=== PATIENT | female | born 1955 | race Caucasian/White ===

== ENCOUNTER 2016-11-29 | Outpatient (CLI) | payer OTHER | END 2016-11-29 15:17 | disposition critical access hospital (66) | CPT/HCPCS: A0425; A0427 ==

== ENCOUNTER 2016-11-29 15:55 | Observation (INO) | payer OTHER ==
[2016-11-29] MEDS ORDERED: ASPIRIN CHEW 81 MG TABLET PO STA (17:00)
[2016-11-29] MEDS ORDERED: NITROGLYCERIN SL 0.4 MG TABLET SL STA (17:00)
[2016-11-29] MEDS ORDERED: ASPIRIN CHEW 81 MG TABLET ONE (17:09)
[2016-11-29] MEDS ORDERED: NITROGLYCERIN SL 0.4 MG TABLET SL ONE (17:09)
[2016-11-29] MEDS ORDERED: SODIUM CHLORIDE FLUSH 0.9% 10 ML SYRINGE IVP PRN (19:06)
[2016-11-29] MEDS ORDERED: TEMAZEPAM 15 MG CAPSULE PO PRN (19:06)
[2016-11-29] MEDS ORDERED: ACETAMINOPHEN 325 MG TABLET PO PRN (19:06)
[2016-11-29] MEDS ORDERED: ONDANSETRON 4 MG/2 ML VIAL IVP PRN (19:06)
[2016-11-29] MEDS: CALCIUM CARBONATE CHEW 500 MG TABLET PO PRN (21:35)
[2016-11-29] MEDS: SODIUM CHLORIDE FLUSH 0.9% 10 ML SYRINGE IVP SCH (22:20)
[2016-11-29] MEDS ORDERED: NITROGLYCERIN SL 0.4 MG TABLET SL PRN (23:48)
[2016-11-29] MEDS ORDERED: MORPHINE 2 MG/ML SYRINGE IVP PRN (23:48)
[2016-11-30] MEDS ORDERED: oxyCOD/ACETAMIN 5 MG/325 MG TABLET PO PRN (00:12)
[2016-11-30] MEDS ORDERED: LEVOTHYROXINE 88 MCG TABLET PO SCH (02:00)
[2016-11-30] MEDS: MAG HYDROX/AL HYDROX/SIMETH 30 ML UDC PO PRN ×2 (02:01→06:04)
[2016-11-30] MEDS: CALCIUM CARBONATE CHEW 500 MG TABLET PO PRN (05:19)
[2016-11-30] MEDS: SODIUM CHLORIDE FLUSH 0.9% 10 ML SYRINGE IVP SCH (06:02)
[2016-11-30] MEDS ORDERED: PANTOPRAZOLE 40 MG TABLET PO SCH (07:00)
[2016-11-30] MEDS ORDERED: amLODIPine 5 MG TABLET PO SCH (09:00)
[2016-11-30] MEDS ORDERED: ASPIRIN EC 81 MG TABLET PO SCH (09:00)
[2016-11-30] MEDS ORDERED: POLYETHYLENE GLYCOL 3350 17 GM PACKET PO SCH (09:00)
[2016-11-30] MEDS ORDERED: ASPIRIN 325 MG TABLET PO SCH (09:00)
[2016-11-30] MEDS ORDERED: hydroCHLOROthiazide 12.5 MG CAPSULE PO SCH (09:00)
[2016-11-30] MEDS ORDERED: ENOXAPARIN 40 MG/0.4 ML SYRINGE SUBQ SCH (09:00)
== END 2016-11-30 12:40 | disposition home or self-care (01) ==
DX: M48.02 Spinal stenosis, cervical region (principal); E78.5 Hyperlipidemia, unspecified; I10 Essential (primary) hypertension; E03.9 Hypothyroidism, unspecified; K21.9 Gastro-esophageal reflux disease without esophagitis; F17.210 Nicotine dependence, cigarettes, uncomplicated; Z82.49 Family history of ischemic heart disease and other diseases of the circulatory system; Z63.4 Disappearance and death of family member; Z71.6 Tobacco abuse counseling; Z79.82 Long term (current) use of aspirin
CPT/HCPCS: 36415; 70450; 71020; 72125; 80048; 80053; 80061; 82550; 82553; 83036; 83690; 83735; 84484; 85025; 85651; 93005; 93010; 93306; 99217; 99218; 99284; A9270

== ENCOUNTER 2016-12-20 14:49 | Outpatient (CLI) | payer OTHER | END 2016-12-20 14:50 | disposition home or self-care (01) | DX: M50.322 Other cervical disc degeneration at C5-C6 level (principal); M47.812 Spondylosis without myelopathy or radiculopathy, cervical region ==

== ENCOUNTER 2018-02-18 17:41 | Emergency (ER) | payer OTHER ==
--- NOTE | 2018-02-18 17:50 | ED Physician Documentation ---
History of Present Illness - Stated complaint Stated Complaint: FLU SYMPTOMS - Chief complaint Chief Complaint: General - History obtained from History obtained from: Patient - History of Present Illness Timing: How many days ago (4) Pain level max: 4 Pain level now: 4 Improved by: nothing Worsened by: breathing, coughing - Additonal information Additional information: cough, congestion, body aches x 3 days. Review of Systems Ten Systems: 10 systems reviewed and negative Constitutional: reports: Fever Ears: denies: Ear pain Nose: reports: Rhinorrhea / runny nose, Congestion Respiratory: reports: Cough GI: denies: Abdominal Pain, Nausea, Vomiting, Diarrhea Skin: denies: Rash Musculoskeletal: denies: Neck pain, Back pain Neurologic: denies: Headache PD PAST MEDICAL HISTORY - Past Medical History Cardiovascular: Hypertension Respiratory: Pneumonia Neuro: Other Endocrine/Autoimmune: HyPOthyroidism GI: GERD : None HEENT: Chronic vision loss, Other Psych: None Musculoskeletal: None Derm: None - Past Surgical History Past Surgical History: Yes 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 HEENT: Other - Present Medications Home Medications: Ambulatory Orders Medication Instructions Recorded Confirmed Aspirin 81 mg PO DAILY 04/18/14 06/04/15 Levothyroxine [Synthroid] 88 mcg PO DAILY 04/18/14 06/04/15 Azithromycin [Zithromax] 250 mg PO DAILY #4 tablet 02/18/18 Benzonatate [Tessalon Perle] 100 - 200 mg PO TID PRN #30 capsule 02/18/18 - Allergies Allergies/Adverse Reactions: Allergies Allergy/AdvReac Type Severity Reaction Status Date / Time lisinopril Allergy Intermediate Rash Verified 02/18/18 17:49 - Social History Does the pt smoke?: Yes Smoking Status: Current every day smoker Does the pt drink ETOH?: No Does the pt have substance abuse?: No - Immunizations Immunizations: TDAP >10years/unknown PD ED PE NORMAL - Vitals Vital signs reviewed: Yes - General General: Alert and oriented X 3, No acute distress - HEENT HEENT: Ears normal, Moist mucous membranes, Pharynx benign - Neck Neck: Supple, no meningeal sign - Cardiac Cardiac: RRR - Respiratory Respiratory: No respiratory distress, Other (rhonchi B) - Abdomen Abdomen: Soft, Non tender, Non distended - Back Back: No CVA TTP, No spinal TTP - Derm Derm: Warm and dry, No rash - Extremities Extremities: No edema - Neuro Neuro: Alert and oriented X 3 - Psych Psych: Normal mood, Normal affect Results - Vitals Vitals: Vital Signs - 24 hr 02/18/18 02/18/18 17:46 19:14 Temperature 37.8 C H 36.5 C Heart Rate 114 H 114 H Respiratory 22 18 Rate Blood Pressure 136/83 H 109/76 O2 Saturation 99 94 Oxygen O2 Source Room air - Labs Labs: Laboratory Tests 02/18/18 17:50 Influenza A (Rapid) Negative Influenza B (Rapid) Negative - Rads (name of study) cxr Radiology: Prelim report reviewed, EMP read contemporaneously, See rad report ( Left upper lobe infiltrate concerning for pneumonia) PD MEDICAL DECISION MAKING - ED course Complexity details: reviewed results, re-evaluated patient, considered differential, d/w patient ED course: Patient is a 62-year-old female who presents to the emergency department with URI symptoms. Appears to have left upper lobe pneumonia on chest x-ray. Will start on antibiotics. Will also place on antitussives. She is well-appearing, nontoxic. No hypoxia or respiratory distress. Patient counseled regarding signs and symptoms for which I believe and urgent re-evaluation would be necessary. Patient with good understanding of and agreement to plan and is comfortable going home at this time This document was made in part using voice recognition software. While efforts are made to proofread this document, sound alike and grammatical errors may occur. Departure - Departure Disposition: 01 Home, Self Care Clinical Impression: Pneumonia Qualifiers: Pneumonia type: due to unspecified organism Laterality: left Lung location: upper lobe of lung Qualified Code(s): J18.1 - Lobar pneumonia, unspecified organism Condition: Good Instructions: ED Pneumonia Adult Follow-Up: Rona Kohli, RUG DRYING MACHINE OPERATOR [Primary Care Provider] - Within 1 week Prescriptions: Azithromycin [Zithromax] 250 mg PO DAILY #4 tablet Benzonatate [Tessalon Perle] 100 - 200 mg PO TID PRN #30 capsule PRN Reason: Cough Comments: Take all antibiotics until gone. Return if you worsen. You can utilize motrin and tylenol at home for fever. Discharge Date/Time: 02/18/18 19:16
[2018-02-18] MEDS ORDERED: ACETAMINOPHEN 325 MG TABLET PO STA (18:03)
[2018-02-18] MEDS ORDERED: BENZONATATE 100 MG CAPSULE PO STA (18:03)
--- NOTE | 2018-02-18 18:42 | XRAY Report ---
EXAM: CHEST RADIOGRAPHY EXAM DATE: 02/18/2018 06:14 PM. CLINICAL HISTORY: Cough, fever. COMPARISON: 11/29/2016. TECHNIQUE: 2 views. FINDINGS: Lungs/Pleura: There is a new focal airspace density in the left upper lobe measuring 4 cm in diameter . Negative for pleural effusion and pneumothorax. Mediastinum: There is moderate calcification of the aortic arch. Heart size is normal. Other: None. IMPRESSION: New left upper lobe airspace disease suspicious for pneumonia. [facility] Referring Provider Line: [phone] SITE ID: [id number]
--- NOTE | 2018-02-18 18:42 | XRAY Preliminary Report ---
Exam: XR CHEST 2 VIEW X-RAY IMPRESSION: New left upper lobe airspace disease suspicious for pneumonia. [facility] SITE ID: [id number]
[2018-02-18] MEDS ORDERED: AZITHROMYCIN 250 MG TABLET PO STA (18:57)
[2018-02-18 19:15] VITALS: BP 109/76
== END 2018-02-18 19:16 | disposition home or self-care (01) ==
LOC: ED 17:41
DX: J18.9 Pneumonia, unspecified organism (principal); I10 Essential (primary) hypertension; E03.9 Hypothyroidism, unspecified; K21.9 Gastro-esophageal reflux disease without esophagitis; Z79.82 Long term (current) use of aspirin; F17.200 Nicotine dependence, unspecified, uncomplicated
CPT/HCPCS: 71046; 87275; 87276; 99283; 99284; A9270

== ENCOUNTER 2018-03-07 15:29 | Outpatient (CLI) | payer OTHER ==
--- NOTE | 2018-03-07 17:50 | XRAY Report ---
TWO VIEW CHEST: 03/07/2018 CLINICAL INDICATION: Followup pneumonia. COMPARISON: 02/18/2018 FINDINGS: Frontal and lateral views of the chest demonstrate a normal cardiac silhouette. The lungs are now clear. Previously seen left upper lobe infiltrate has resolved. No effusion or pneumothorax is present. IMPRESSION: RESOLUTION OF LEFT-SIDED AIRSPACE DISEASE. TD: 03/07/2018 15:52
== END 2018-03-07 15:30 | disposition home or self-care (01) ==
LOC: DI 15:29
PROVIDERS: ATTEND Registered Nurse
DX: J18.9 Pneumonia, unspecified organism (principal)
CPT/HCPCS: 71046

== ENCOUNTER 2018-11-25 03:05 | Emergency (ER) | payer OTHER ==
[2018-11-25] MEDS ORDERED: SODIUM CHLORIDE 0.9% 1,000 ML IV ONE (03:28)
[2018-11-25] MEDS ORDERED: ONDANSETRON 4 MG/2 ML VIAL IVP STA (03:28)
[2018-11-25] MEDS ORDERED: KETOROLAC 30 MG/ML VIAL IVP STA (03:28)
--- NOTE | 2018-11-25 03:40 | ED Physician Documentation ---
History of Present Illness - Stated complaint Stated Complaint: DIZZINESS,SOA - Chief complaint Chief Complaint: Resp - History obtained from History obtained from: Patient, Family - History of Present Illness Timing: How many days ago (2) Pain level max: 8 Pain level now: 8 - Additonal information Additional information: 62-year-old female with a complaint of "I have pneumonia". She states that she had subjective fevers at home. Minimal cough. Has been vomiting for the past 2 days. States has all over body aches. Did receive her flu shot this year. Has not taken anything for the pain. She states she is unable to keep anything down at this time. No diarrhea. Does have cramping abdominal pain. Brought in by family. Nothing makes it better or worse Review of Systems Ten Systems: 10 systems reviewed and negative Constitutional: reports: Fever (Subjective), Chills, Myalgias Eyes: denies: Photophobia Ears: denies: Ear pain Nose: denies: Rhinorrhea / runny nose, Congestion Throat: denies: Sore throat Cardiac: reports: Chest pain / pressure (Left-sided chest pain, constant, worse with coughing. Has been present for 2 days) Respiratory: reports: Cough (Mild). denies: Dyspnea, Hemoptysis, Wheezing GI: reports: Nausea, Vomiting. 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 HEENT: Other - Present Medications Home Medications: Ambulatory Orders Medication Instructions Recorded Confirmed Levothyroxine [Synthroid] 88 mcg PO DAILY 04/18/14 06/04/15 Benzonatate [Tessalon Perle] 100 - 200 mg PO TID PRN #30 capsule 11/25/18 Doxycycline Hyclate 100 mg PO BID #20 capsule 11/25/18 Ibuprofen [Motrin] 800 mg PO Q8H PRN #30 tablet 11/25/18 Ondansetron Odt [Zofran] 4 mg TL Q6H PRN #10 tablet 11/25/18 - Allergies Allergies/Adverse Reactions: Allergies Allergy/AdvReac Type Severity Reaction Status Date / Time lisinopril Allergy Intermediate Rash Verified 11/25/18 03:15 - Social History Does the pt smoke?: Yes Smoking Status: Current every day smoker Does the pt drink ETOH?: No Does the pt have substance abuse?: No - Immunizations Immunizations are current?: Yes Immunizations: TDAP >10years/unknown - POLST Patient has POLST: No PD ED PE NORMAL - Vitals Vital signs reviewed: Yes - General General: Alert and oriented X 3, Well developed/nourished, Other (Curled in the bed, hand on the left chest) - HEENT HEENT: PERRL, Ears normal, Moist mucous membranes, Pharynx benign - Neck Neck: Supple, no meningeal sign - Cardiac Cardiac: RRR, Strong equal pulses - Respiratory Respiratory: No respiratory distress, Clear bilaterally - Abdomen Abdomen: Soft, Non tender, Non distended - Back Back: No spinal TTP - Derm Derm: Warm and dry, No rash - Extremities Extremities: No edema, No calf tenderness / cord - Neuro Neuro: Alert and oriented X 3 - Psych Psych: Normal mood, Normal affect Results - Vitals Vitals: Vital Signs - 24 hr 11/25/18 11/25/18 11/25/18 03:13 03:50 04:12 Temperature 37.3 C 37.7 C H Heart Rate 107 H 90 86 Respiratory 18 22 25 H Rate Blood Pressure 115/60 131/64 H 110/64 O2 Saturation 97 95 94 Oxygen O2 Source Room air - Labs Labs: Laboratory Tests 11/25/18 11/25/18 11/25/18 03:30 03:30 03:49 WBC 18.4 H RBC 4.70 Hgb 14.2 Hct 43.7 MCV 93.0 MCH 30.2 MCHC 32.5 RDW 13.7 Plt Count 192 MPV 8.2 Neut # (Auto) 16.1 H Lymph # (Auto) 1.2 L [place] # (Auto) 1.0 Eos # (Auto) 0.0 Baso # (Auto) 0.1 Absolute Nucleated RBC 0.00 Nucleated RBC % 0.0 Sodium 132 L Potassium 3.1 L Chloride 99 L Carbon Dioxide 22 Anion Gap 11.0 BUN 14 Creatinine 0.8 Estimated GFR (MDRD) 73 L Glucose 117 H Calcium 9.1 Total Bilirubin 1.1 H AST 23 ALT 13 Alkaline Phosphatase 60 Total Protein 7.6 Albumin 3.7 Globulin 3.9 Albumin/Globulin Ratio 0.9 L Lipase 20 L Urine Color Urine Clarity Urine pH Ur Specific [place] Urine Protein Urine Glucose (UA) Urine Ketones Urine Occult Blood Urine Nitrite Urine Bilirubin Urine Urobilinogen Ur Leukocyte Esterase Urine RBC Urine WBC Ur Squamous Epith Cells Urine Bacteria Urine Mucus Ur Microscopic Review Urine Culture Comments Influenza A (Rapid) POSITIVE H Influenza B (Rapid) Negative 11/25/18 03:50 WBC RBC Hgb Hct MCV MCH MCHC RDW Plt Count MPV Neut # (Auto) Lymph # (Auto) [place] # (Auto) Eos # (Auto) Baso # (Auto) Absolute Nucleated RBC Nucleated RBC % Sodium Potassium Chloride Carbon Dioxide Anion Gap BUN Creatinine Estimated GFR (MDRD) Glucose Calcium Total Bilirubin AST ALT Alkaline Phosphatase Total Protein Albumin Globulin Albumin/Globulin Ratio Lipase Urine Color YELLOW Urine Clarity HAZY Urine pH 6.0 Ur Specific [place] 1.020 Urine Protein NEGATIVE Urine Glucose (UA) NEGATIVE Urine Ketones 15 H Urine Occult Blood SMALL H Urine Nitrite NEGATIVE Urine Bilirubin NEGATIVE Urine Urobilinogen 0.2 (NORMAL) Ur Leukocyte Esterase NEGATIVE Urine RBC 0-5 Urine WBC 0-3 Ur Squamous Epith Cells MANY Squamous H Urine Bacteria Rare Urine Mucus Few Strands Ur Microscopic Review INDICATED Urine Culture Comments NOT INDICATED Influenza A (Rapid) Influenza B (Rapid) - Rads (name of study) cxr Radiology: Prelim report reviewed, EMP read contemporaneously, See rad report (Mass or infiltrate at the left apex. Malignancy not excluded. Pneumonia also possible) PD MEDICAL DECISION MAKING - ED course Complexity details: reviewed results, re-evaluated patient, considered differential, d/w patient, d/w family ED course: 62-year-old female with what appears to be influenza A as well as pneumonia. Given Toradol, Tylenol, Rocephin and azithromycin. Also given IV fluids. Given Zofran and is tolerating p.o. without difficulty. Feels much better. She does not appear septic at this time. No hypoxia or respiratory distress. Counseled that she needs a follow-up chest x-ray to ensure resolution of her pneumonia that there is not a mass underlying this. Patient is well-appearing, nontoxic. Patient and family are comfortable going home at this time. Patient and family counseled regarding signs and symptoms for which I believe and urgent re- evaluation would be necessary. Patient with good understanding of and agreement to plan This document was made in part using voice recognition software. While efforts are made to proofread this document, sound alike and grammatical errors may occur. Departure - Departure Disposition: Home, Self Care Clinical Impression: Influenza A Pneumonia Qualifiers: Pneumonia type: due to unspecified organism Laterality: left Lung location: upper lobe of lung Qualified Code(s): J18.1 - Lobar pneumonia, unspecified o rganism Condition: Good Instructions: ED Flu, ED Pneumonia Adult Follow-Up: Rona Kohli ARNP [Primary Care Provider] - Within 1 week () Prescriptions: Benzonatate [Tessalon Perle] 100 - 200 mg PO TID PRN #30 capsule PRN Reason: Cough Doxycycline Hyclate 100 mg PO BID #20 capsule Ibuprofen [Motrin] 800 mg PO Q8H PRN #30 tablet PRN Reason: PAIN &/OR FEVER Ondansetron Odt [Zofran] 4 mg TL Q6H PRN #10 tablet PRN Reason: Nausea / Vomiting Comments: Drink plenty of fluids and rest. Return if you worsen. Take all antibiotics until gone. You should have a repeat xray in 3-4 weeks to ensure resolution and to exclude any masses or other abnormalities that can mimic pneumonia on an xray.
[2018-11-25 03:46] LABS: HGB - HEMOGLOBIN 14.2 g/dL (12.0-16.0); NEUTROPHILS # (AUTO) 16.1 10^3/uL (1.5-6.6); RED CELL DISTRIBUTION WIDTH 13.7 % (12.0-15.0)
[2018-11-25 03:52] LABS: BASOPHILS # (AUTO) 0.1 10^3/uL (0.0-0.1); BASOPHILS % (AUTO) 0.3 %; LYMPHOCYTES # (AUTO) 1.2 10^3/uL (1.5-3.5); LYMPHOCYTES % (AUTO) 6.7 %; MEAN CORPUSCULAR HEMOGLOBIN 30.2 pg (27.0-31.0); MEAN CORPUSCULAR HGB CONC 32.5 g/dL (32.0-36.0); MEAN PLATELET VOLUME 8.2 fL (7.9-10.8); MONOCYTES % (AUTO) 5.6 %; NEUTROPHILS % (AUTO) 87.4 %; PLT - PLATELET COUNT 192 10^3/uL (130-450); WHITE BLOOD COUNT 18.4 x10^3/uL (4.8-10.8)
[2018-11-25 03:55] LABS: GLUCOSE, URINE (UA) NEGATIVE (NEGATIVE); KETONES,URINE (UA) 15 mg/dL (NEGATIVE); LEUKOCYTE ESTERASE, URINE NEGATIVE (NEGATIVE); NITRITE,URINE NEGATIVE (NEGATIVE); OCCULT BLOOD,URINE SMALL (NEGATIVE); PROTEIN,URINE NEGATIVE (NEGATIVE); UROBILINOGEN,URINE 0.2 (NORMAL) E.U./dL (NORMAL)
[2018-11-25 03:56] LABS: ALBUMIN 3.7 g/dL (3.2-5.5); ALBUMIN/GLOBULIN RATIO 0.9 (1.0-2.2); BILIRUBIN,TOTAL 1.1 mg/dL (0.2-1.0); CALCIUM 9.1 mg/dL (8.5-10.3); CREATININE 0.8 mg/dL (0.4-1.0); TOTAL PROTEIN 7.6 g/dL (6.7-8.2)
[2018-11-25] MEDS ORDERED: cefTRIAXone 1 GM VIAL IVP STA (04:16)
[2018-11-25] MEDS ORDERED: AZITHROMYCIN 250 MG TABLET PO STA (04:16)
[2018-11-25 04:20] LABS: BACTERIA,URINE Rare /HPF (None Seen); BILIRUBIN,URINE NEGATIVE (NEGATIVE); CLARITY,URINE HAZY (CLEAR); ICTOTEST,URINE NEGATIVE; RBC,URINE 0-5 /HPF (0-5); SQUAMOUS EPITHELIAL CELL,UR MANY Squamous (<= Few)
[2018-11-25 04:21] LABS: MUCUS,URINE Few Strands
--- NOTE | 2018-11-25 04:26 | XRAY Report ---
Reason: cough, chest pain Procedure Date: 11/25/2018 Accession Number: [id number] / [id number] Procedure: XR - Chest 2 View X-Ray CPT Code: 36467 FULL RESULT: EXAM: CHEST RADIOGRAPHY EXAM DATE: 11/25/2018 04:11 AM. CLINICAL HISTORY: Cough, chest pain. Fever and shortness of breath. COMPARISON: CHEST 2 VIEW 03/07/2018 3:34 PM. TECHNIQUE: 2 views. FINDINGS: Lungs/Pleura: Mass or infiltrate at the left apex. No pleural effusion seen. No pneumothorax. Mediastinum: Heart size is normal. Aortic atherosclerosis. Other: None. IMPRESSION: 1. Mass or infiltrate at the left apex. Malignancy not excluded. Pneumonia also possible. [facility]
[2018-11-25] MEDS ORDERED: ACETAMINOPHEN 325 MG TABLET PO STA (04:38)
[2018-11-25 04:45] VITALS: BP 109/65
== END 2018-11-25 04:51 | disposition home or self-care (01) ==
LOC: ED 03:05
DX: J10.00 Influenza due to other identified influenza virus with unspecified type of pneumonia (principal); F17.200 Nicotine dependence, unspecified, uncomplicated; I10 Essential (primary) hypertension
CPT/HCPCS: 36415; 71046; 80053; 81001; 83690; 84484; 85025; 87275; 87276; 93005; 96374; 96375; 99284; A9270; 81003; 87086

== ENCOUNTER 2018-12-26 14:47 | Outpatient (CLI) | payer OTHER ==
--- NOTE | 2018-12-27 05:47 | XRAY Report ---
Reason: PNEUMONIA Procedure Date: 12/26/2018 Accession Number: [id number] / [id number] Procedure: XR - Chest 2 View X-Ray CPT Code: 00554 FULL RESULT: EXAM: CHEST RADIOGRAPHY EXAM DATE: 12/26/2018 02:57 PM. CLINICAL HISTORY: History of pneumonia, 4 week follow-up chest x-ray. COMPARISON: CHEST 2 VIEW 11/25/2018 3:33 AM, CHEST 2 VIEW 03/07/2018 3:34 PM, CHEST 2 VIEW 02/18/2018 6:03 PM, CXR PA TECHNIQUE: 2 views. FINDINGS: Lungs/Pleura: Small irregular consolidation within the left upper lobe. This is improved from the prior study. Mediastinum: Moderate calcific atherosclerosis. Normal heart size. Other: Anterior compression deformity of mid thoracic vertebral body. Multilevel thoracic degenerative change. IMPRESSION: Small left upper lobe irregular opacity, improved from the prior study. This may be improving infectious or inflammatory process. Follow-up chest x-ray would be helpful at 4-6 weeks after appropriate treatment to assess for resolution. [facility]
== END 2018-12-26 14:48 | disposition home or self-care (01) ==
LOC: DI 14:47
PROVIDERS: ATTEND Registered Nurse
DX: J18.9 Pneumonia, unspecified organism (principal)
CPT/HCPCS: 71046

== ENCOUNTER 2019-01-26 08:45 | Outpatient (CLI) | payer OTHER ==
--- NOTE | 2019-01-26 09:35 | XRAY Report ---
Reason: PNEUMONIA Procedure Date: 01/26/2019 Accession Number: [id number] / [id number] Procedure: XR - Chest 2 View X-Ray CPT Code: 22423 FULL RESULT: EXAM: CHEST RADIOGRAPHY EXAM DATE: 01/26/2019 08:49 AM. CLINICAL HISTORY: Pneumonia. COMPARISON: CHEST 2 VIEW 12/26/2018 2:50 PM. CHEST 2 VIEW 11/25/2018 3:33 AM. TECHNIQUE: 2 views. FINDINGS: Lungs/Pleura: No focal opacities evident. Interval resolution of previous left upper lobe infiltrate seen on exam 11/25/2018. No pleural effusion. No pneumothorax. Normal volumes. Mediastinum: Heart and mediastinal contours are unremarkable. Other: None. IMPRESSION: Normal 2-view chest radiography. [facility]
== END 2019-01-26 08:46 | disposition home or self-care (01) ==
LOC: DI 08:45
PROVIDERS: ATTEND Registered Nurse
DX: J18.9 Pneumonia, unspecified organism (principal)
CPT/HCPCS: 71046

== ENCOUNTER 2020-05-05 14:50 | Outpatient (CLI) | payer OTHER ==
--- NOTE | 2020-05-06 15:11 | Mammography Report ---
BILATERAL DIGITAL SCREENING MAMMOGRAM 3D/2D: 05/05/2020 CLINICAL: Routine screening. Comparison is made to exams dated: 08/31/2016 mammogram, 09/26/2014 mammogram, and 03/19/2011 mammogram - [facility]. The tissue of both breasts is predominantly fatty. No significant masses, calcifications, or other findings are seen in either breast. There has been no significant interval change. IMPRESSION: NEGATIVE There is no mammographic evidence of malignancy. A 1 year screening mammogram is recommended. This exam was interpreted at Station ID: [id number]. NOTE: For mammograms, a report in lay terms will be sent to the patient. Approximately 15% of breast malignancies will not be visualized mammographically. In the management of a palpable breast mass, a negative mammogram must not discourage biopsy of a clinically suspicious lesion. Electronically Signed By: Rah Grider M.D., jr/beth:05/05/2020 15:55:28 ACR BI-RADS Category 1: Negative 3341F PARENCHYMAL PATTERN: (F) - The breast(s) demonstrate(s) diffuse fatty replacement. BI-RADS CATEGORY: (1) - 1 RECOMMENDATION: (ANNUAL) - Recommend routine annual screening mammography. [id number] 1 year screening LATERALITY: (B)
== END 2020-05-05 14:51 | disposition home or self-care (01) ==
LOC: DI 14:50
PROVIDERS: ATTEND Registered Nurse
DX: Z12.31 Encounter for screening mammogram for malignant neoplasm of breast (principal)
CPT/HCPCS: 77063; 77067

== ENCOUNTER 2020-11-21 12:34 | Outpatient (CLI) | payer OTHER ==
[2020-11-21 14:48] LABS: BASOPHILS % (AUTO) 0.5 %; EOSINOPHILS # (AUTO) 0.1 10^3/uL (0.0-0.7); EOSINOPHILS % (AUTO) 1.6 %; HGB - HEMOGLOBIN 14.5 g/dL (12.0-16.0); LYMPHOCYTES # (AUTO) 1.4 10^3/uL (1.5-3.5); LYMPHOCYTES % (AUTO) 22.6 %; MEAN CORPUSCULAR HEMOGLOBIN 31.1 pg (27.0-31.0); MEAN CORPUSCULAR HGB CONC 31.9 g/dL (32.0-36.0); MEAN CORPUSCULAR VOLUME 97.6 fL (81.0-99.0); MEAN PLATELET VOLUME 10.1 fL (7.9-10.8); MONOCYTES # (AUTO) 0.4 10^3/uL (0.0-1.0); MONOCYTES % (AUTO) 6.1 %; NEUTROPHILS # (AUTO) 4.3 10^3/uL (1.5-6.6); NEUTROPHILS % (AUTO) 68.9 %; PLT - PLATELET COUNT 242 10^3/uL (130-450); RED BLOOD COUNT 4.66 10^6/uL (4.20-5.40); RED CELL DISTRIBUTION WIDTH 12.7 % (12.0-15.0); WHITE BLOOD COUNT 6.2 x10^3/uL (4.8-10.8)
[2020-11-21 15:50] LABS: MAGNESIUM 2.4 mg/dL (1.7-2.8)
[2020-11-21 15:51] LABS: FOLATE 15.35 ng/mL (5.90 - >24.8)
== END 2020-11-21 12:35 | disposition home or self-care (01) ==
LOC: LAB.S 12:34
PROVIDERS: ATTEND Registered Nurse
DX: L43.9 Lichen planus, unspecified (principal)
CPT/HCPCS: 36415; 82607; 82746; 83540; 83735; 84207; 84466; 84630; 85025

== ENCOUNTER 2020-12-03 15:10 | Outpatient (CLI) | payer OTHER ==
[2020-12-05 10:52] LABS: HOMOCYSTEINE 12.4 umol/L (<10.4)
== END 2020-12-03 15:11 | disposition home or self-care (01) ==
LOC: LAB.S 15:10
PROVIDERS: ATTEND Registered Nurse
DX: E53.8 Deficiency of other specified B group vitamins (principal)
CPT/HCPCS: 36415; 83090; 83921

== ENCOUNTER 2021-05-06 16:28 | Outpatient (CLI) | payer OTHER ==
[2021-05-06 20:28] LABS: % IRON SATURATION 16 % (20-50); IRON 64 ug/dL (28-170); TOTAL IRON BINDING CAPACITY 392 ug/dL (250-450); TRANSFERRIN 280 mg/dL (192-382)
[2021-05-06 20:33] LABS: THYROID STIMULATING HORMONE 3.67 uIU/mL (0.34-5.60)
[2021-05-06 20:34] LABS: FREE T3 2.76 pg/mL (2.5-3.9)
[2021-05-06 20:35] LABS: FREE T4 (FREE THYROXINE) 0.9 ng/dL (0.58-1.64)
[2021-05-06 20:39] LABS: FERRITIN 39.5 ng/mL (11.0-306.8)
== END 2021-05-06 16:29 | disposition home or self-care (01) ==
LOC: LAB.S 16:28
PROVIDERS: ATTEND Registered Nurse
DX: L65.9 Nonscarring hair loss, unspecified (principal); E03.9 Hypothyroidism, unspecified
CPT/HCPCS: 36415; 82728; 83540; 84439; 84443; 84466; 84481; 85651

== ENCOUNTER 2021-08-27 07:40 | Outpatient (CLI) | payer OTHER ==
--- NOTE | 2021-08-27 13:00 | Ultrasound Report ---
PROCEDURE: Carotid Doppler Complete INDICATIONS: CAROTID ATHEROSCLEROSIS TECHNIQUE: Color and pulse Doppler interrogation was performed of both carotid systems, with image documentation and velocity measurements. COMPARISON: 08/28/2016. FINDINGS: Right side: Brachial blood pressure: 162/78 mm Hg. Common carotid artery peak systolic velocity: 68 cm/sec. Internal carotid artery peak systolic velocity: 102 cm/sec. Internal carotid artery end diastolic velocity: 77 cm/sec. External carotid artery peak systolic velocity: 80 cm/sec. ICA/CCA peak systolic ratio: 1.5 . Painting scale imaging description: Calcified plaque Percent internal carotid artery stenosis: Less than 50% . Vertebral artery: Flow direction is antegrade. Left side: Brachial blood pressure: 158/75 mm Hg. Common carotid artery peak systolic velocity: 92 cm/sec. Internal carotid artery peak systolic velocity: 93 cm/sec. Internal carotid artery end diastolic velocity: 28 cm/sec. External carotid artery peak systolic velocity: 108 cm/sec. ICA/CCA peak systolic ratio: 1.01 . Painting scale imaging description: Calcified plaque Percent internal carotid artery stenosis: Less than 50% . Vertebral artery: Flow direction is antegrade. IMPRESSION: 1. Less than 50% stenosis of the origins of the internal carotid arteries bilaterally. Finding not si gnificantly changed compared to prior exam obtained 08/28/2016. 2. Hypertension the time of image acquisition. The estimate of stenosis included in the report of the imaging study was calculated using the NASCET method Reviewed by: Clair Diaz MD, PhD on 08/27/2021 11:58 AM RICHARD Approved by: Clair Diaz MD, PhD on 08/27/2021 11:58 AM RICHARD Station ID: [id number]
== END 2021-08-27 07:41 | disposition home or self-care (01) ==
LOC: DI 07:40
PROVIDERS: ATTEND Registered Nurse
DX: I65.23 Occlusion and stenosis of bilateral carotid arteries (principal); I10 Essential (primary) hypertension
CPT/HCPCS: 93880

== ENCOUNTER 2024-01-30 08:00 | Outpatient (CLI) | payer MEDICARE, OTHER | END 2024-01-30 23:59 | disposition home or self-care (01) | LOC: LAB.N 08:00 | PROVIDERS: ATTEND Registered Nurse | DX: R30.0 Dysuria (principal) | CPT/HCPCS: 87086; 87181 ==

== ENCOUNTER 2024-07-19 12:20 | Outpatient (CLI) | payer MEDICARE ==
--- NOTE | 2024-07-20 08:33 | Mammography Report ---
BILATERAL DIGITAL SCREENING MAMMOGRAM 3D/2D: 07/19/2024 CLINICAL: Routine screening. Comparison is made to exams dated: 06/14/2022 mammogram, 05/05/2020 mammogram, 08/31/2016 mammogram, an d 09/26/2014 mammogram - [facility]. The breasts are almost entirely fatty (category a/<25% glandular tissue). No significant masses, calcifications, or other findings are seen in either breast. There has been no significant interval change. IMPRESSION: NEGATIVE There is no mammographic evidence of malignancy. A 1 year screening mammogram is recommended. Based on the Tyrer Cuzick model (a risk assessment model) the patient's lifetime risk is 4.1% and her 10 year risk is 2.2%. According to the ACR, ACS, and NCCN guidelines, an annual breast MRI exam royce g with mammogram is recommended if the patient's lifetime risk is 20% or greater. This exam was interpreted at Station ID: [id number]. NOTE: For mammograms, a report in lay terms will be sent to the patient. Approximately 15% of breast malignancies will not be visualized mammographically. In the management of a palpable breast mass, a negative mammogram must not discourage biopsy of a clinically suspicious lesion. Electronically Signed By: Domitila Haney M.D., Ph.D. /beth:07/20/2024 07:46:51 letter sent: No_Letter ACR BI-RADS Category 1: Negative PARENCHYMAL PATTERN: (F) - The breast(s) demonstrate(s) diffuse fatty replacement. BI-RADS CATEGORY: (1) - 1 RECOMMENDATION: (ANNUAL) - Recommend routine annual screening mammography. [id number] 1 year screening LATERALITY: (B)
== END 2024-07-19 12:21 | disposition home or self-care (01) ==
LOC: DI 12:20
PROVIDERS: ATTEND Registered Nurse
DX: Z12.31 Encounter for screening mammogram for malignant neoplasm of breast (principal)

== ENCOUNTER 2024-07-19 12:25 | Outpatient (CLI) | payer MEDICARE ==
--- NOTE | 2024-07-20 09:01 | CT Report ---
PROCEDURE: Lung Cancer Screen INDICATIONS: EX SMOKER TECHNIQUE: A CT scan of the chest was performed. Intravenous contrast media was not administered. Images were re corded and evaluated at appropriate window settings. Reformats: axial MIP of the chest, coronal and s agittal. For radiation dose reduction, the following was used: automated exposure control, adjustment of mA and/or kV according to patient size. COMPARISON: Chest radiographs 01/26/2019 FINDINGS: Image quality: Excellent. Prior cancer history: No. Lungs and pleura: No pleural effusions. No pneumothorax. No suspicious pulmonary nodules which requi re follow up. Mediastinum: Heart size is normal. Moderate two-vessel coronary artery calcifications. No pericardial effusion. No large vessel abnormality. No mediastinal adenopathy by size criteria. Chest wall and lower neck: Thyroid is unremarkable. No axillary or supraclavicular adenopathy by size . Bones: No aggressive osseous abnormality. Upper Abdomen: Unremarkable. IMPRESSION: Lung RAD: 1 - Negative. Recommendation: Continue annual screening in 12 Months with LDCT Non-Lung Significant Findings: Coronary Arterial Calcification - Moderate or Severe. Reviewed by: Noble Rivera MD on 07/20/2024 8:59 AM PDT Approved by: Noble Rivera MD on 07/20/2024 8:59 AM PDT Station ID: [id number]
== END 2024-07-19 12:26 | disposition home or self-care (01) ==
LOC: DI 12:25
PROVIDERS: ATTEND Registered Nurse
DX: Z12.2 Encounter for screening for malignant neoplasm of respiratory organs (principal); I25.10 Atherosclerotic heart disease of native coronary artery without angina pectoris; Z87.891 Personal history of nicotine dependence

== ENCOUNTER 2024-07-19 13:53 | Outpatient (CLI) | payer MEDICARE ==
--- NOTE | 2024-07-21 00:09 | DEXA Report ---
PROCEDURE: Dexa Spine and/or Hip INDICATIONS: POST MENOPAUSAL TECHNIQUE: Dual energy x-ray absorptiometry (DEXA) was performed in the regions detailed below. COMPARISON: None. FINDINGS: Lumbar Spine: Bone Mineral Density 0.934 g/cm/cm,T score -2.1. Osteopenia Left Femoral Neck: Bone Mineral Density 0.731 g/cm/cm, T score -2.2. Osteopenia Left Total Hip: Bone Mineral Density 0.696 g/cm/cm,T score -2.5. Osteoporosis (T score greater or equal to -1.0: NORMAL) (T score from -1.1 to -2.4: OSTEOPENIA) (T score less than or equal to -2.5 to: OSTEOPOROSIS) IMPRESSION: Left hip osteoporosis Patients with diagnosis of osteoporosis or osteopenia should have regular bone mineral density assess ment. For those eligible for Medicare, routine testing is allowed once every 2 years. Testing frequ ency can be increased for patients who have rapidly progressing disease or for those who are receivin g medical therapy to restore bone mass. Reviewed by: Raciel Cordon MD on 07/20/2024 11:08 PM RICHARD Approved by: Raciel Cordon MD on 07/20/2024 11:08 PM RICHARD Station ID: [id number]
== END 2024-07-19 13:54 | disposition home or self-care (01) ==
LOC: DI 13:53
PROVIDERS: ATTEND Registered Nurse
DX: M81.0 Age-related osteoporosis without current pathological fracture (principal); Z78.0 Asymptomatic menopausal state